=== PATIENT | male | born 1950 | race African-American/Black ===

== ENCOUNTER 2021-06-27 16:34 | Inpatient (IN) ==
[2021-06-27] MEDS ORDERED: Naloxone 0.4 MG/ML INJ IVP PRN (19:53)
[2021-06-27] MEDS ORDERED: Acetaminophen 325 MG TABLET PO PRN (19:53)
[2021-06-27] MEDS ORDERED: Ondansetron 4 MG/2 ML VIAL IVP PRN (19:53)
[2021-06-27] MEDS ORDERED: Melatonin 3 MG TABLET PO PRN (19:53)
[2021-06-27] MEDS: Piperacillin/Tazobactam 3.375 GM in 0.9 % Sodium Chloride Mini Bag 100 ML IVPB SCH (23:38)
[2021-06-28] MEDS ORDERED: Albuterol 2.5 MG/3 ML NEBULIZER IH PRN (00:55)
[2021-06-28] MEDS ORDERED: GuaiFENesin Liq 200 MG/10 ML UDC PO PRN (00:55)
[2021-06-28] MEDS ORDERED: Perflutren Lipid Microsphere 1.3 ML in 0.9 % Sodium Chloride 8.7 ML IVP PRN (03:03)
[2021-06-28] MEDS: Vancomycin 1,250 MG/262.5 ML IV.SOLN IVPB SCH ×2 (03:42→18:03)
[2021-06-28 06:28] LABS: Alanine Aminotransferase 10 Units/L (7-52); Albumin/Globulin Ratio 1.4 (1.1-2.2); Alkaline Phosphatase 38 Units/L (34-104); Aspartate Amino Transferase 16 Units/L (13-39); BUN/Creatinine Ratio 17 (6-26); Bilirubin,Total 1.1 mg/dL (0.3-1.0); Blood Urea Nitrogen 23 mg/dL (8-23); Calcium 10.3 mg/dL (8.6-10.3); Carbon Dioxide 27 mEq/L (23-29); Chloride 102 mEq/L (98-107); Globulin 2.9 g/dL (2.4-3.5); Glucose 119 mg/dL (70-105); Magnesium 1.8 mg/dL (1.6-2.6); Osmolality,Calculated 291 (280-300); Phosphorous 3.7 mg/dL (2.7-4.5); Potassium 4.6 mEq/L (3.5-5.1); Sodium 138 mEq/L (136-145); Total Protein 6.9 g/dL (6.4-8.9); eGFR For African Americans > 60 (> 60); eGFR For Non-African Americans 53 (> 60)
[2021-06-28 07:01] LABS: Basophils % 0.1 %; Eosinophils % 0.2 %; Hematocrit 31.5 % (37.5-50.1); Hemoglobin 10.3 g/dL (12.9-16.9); Immature Granulocytes % 0.4 % (0-4); Lymphocytes # 1.5 K/mcL (0.6-4.6); Lymphocytes % 12.1 %; Mean Corpuscular HGB Conc 32.7 g/dL (31.6-35.5); Mean Corpuscular Hemoglobin 30.5 pg (28.0-33.3); Mean Corpuscular Volume 93.2 fL (83.0-100.0); Mean Platelet Volume 10.7 fL (9.4-12.4); Monocytes # 1.4 K/mcL (0.0-1.3); Monocytes % 11.2 %; Neutrophils # 9.7 K/mcL (1.6-8.9); Platelet Count 190 K/mcL (140-400); Red Blood Count 3.38 M/mcL (4.19-5.50); Red Cell Distribution Width 15.6 % (11.5-14.5); White Blood Count 12.7 K/mcL (4.3-11.1)
[2021-06-28] MEDS ORDERED: Artificial Tears SOLN 15 ML BOTTLE BOTH EYES PRN ×2 (07:45→16:36)
[2021-06-28] MEDS ORDERED: Saline Nasal Spray 44 ML BOTTLE NS PRN ×2 (07:45→16:36)
[2021-06-28] MEDS: Multivit/Ca/Min/Fe/FA 1 TAB TABLET PO SCH (08:43)
[2021-06-28] MEDS: Piperacillin/Tazobactam 3.375 GM in 0.9 % Sodium Chloride Mini Bag 100 ML IVPB SCH ×2 (08:43→16:30)
[2021-06-28] MEDS: Chlorhexidine Rinse 15 ML MOUTHWASH MM SCH ×2 (08:43→21:23)
[2021-06-28] MEDS: Lactobacillus 1 EACH CAP.SPRINK PO SCH ×2 (08:43→21:24)
[2021-06-28 09:16] LABS: INR 1.4; Prothrombin Time 15.9 Seconds (9.4-12.1)
[2021-06-28] MEDS: Ipratropium/Albuterol Neb 3 ML IH SCH ×2 (10:03→11:27)
[2021-06-28] MEDS ORDERED: methylPREDNISolone 125 MG/2 ML VIAL IVP STA (10:11)
[2021-06-28 10:38] LABS: Adenovirus Not Detected (Not Detect); Bordetella Pertussis Not Detected (Not Detect); Chlamydophila pneumoniae Not Detected (Not Detect); Coronavirus 229E Not Detected (Not Detect); Coronavirus HKU1 Not Detected (Not Detect); Coronavirus NL63 Not Detected (Not Detect); Coronavirus OC43 Not Detected (Not Detect); Human Metapneumovirus Not Detected (Not Detect); Human Rhinovirus/Enterovirus Not Detected (Not Detect); Influenza A Subtype 2009 H1 Not Detected (Not Detect); Influenza B Not Detected (Not Detect); Mycoplasma pneumoniae Not Detected (Not Detect); Parainfluenza Virus 1 Not Detected (Not Detect); Parainfluenza Virus 2 Not Detected (Not Detect); Parainfluenza Virus 3 Not Detected (Not Detect); Parainfluenza Virus 4 Not Detected (Not Detect); Respiratory Syncytial Virus Not Detected (Not Detect); SARS-CoV-2 Not Detected (Not Detect)
[2021-06-28 11:02] LABS: ABG Base Excess 3 mEq/L (-2 to 3); ABG HCO3 28 mEq/L (21-27); ABG Oxygen Saturation 99 % (95-98); ABG PCO2 44 mmHg (35-45); ABG PO2 115 mmHg (85-104); ABG TCO2 29 mEq/L (20-26)
[2021-06-28] MEDS: Budesonide/Formoterol 160/4.5 1 PUFF INH IH SCH ×2 (11:27→19:32)
[2021-06-28] MEDS ORDERED: *HR* Metoprolol 5 MG/5 ML VIAL IVP ONE (13:51)
[2021-06-28] MEDS ORDERED: Furosemide 20 MG/2 ML VIAL IVP ONE (14:00)
[2021-06-28] MEDS: Levalbuterol Neb 1.25 MG/3 ML IH SCH ×4 (14:06→23:34)
[2021-06-28 14:07] LABS: ABG Base Excess 4 mEq/L (-2 to 3); ABG HCO3 29 mEq/L (21-27); ABG Oxygen Saturation 92 % (95-98); ABG PCO2 45 mmHg (35-45); ABG PH 7.42 pH Units (7.32-7.45); ABG PO2 65 mmHg (85-104); ABG TCO2 31 mEq/L (20-26)
[2021-06-28 14:19] LABS: Basophils % 0.1 %; Hemoglobin 11.5 g/dL (12.9-16.9); Immature Granulocytes % 0.4 % (0-4); Lymphocytes # 0.9 K/mcL (0.6-4.6); Lymphocytes % 6.1 %; Mean Corpuscular HGB Conc 32.9 g/dL (31.6-35.5); Mean Corpuscular Hemoglobin 31.2 pg (28.0-33.3); Mean Corpuscular Volume 94.9 fL (83.0-100.0); Monocytes # 0.7 K/mcL (0.0-1.3); Monocytes % 4.9 %; Neutrophils # 13.4 K/mcL (1.6-8.9); Nucleated Red Blood Cells 0.1 /100 WBC (0); Platelet Count 196 K/mcL (140-400); Red Blood Count 3.69 M/mcL (4.19-5.50); Red Cell Distribution Width 15.6 % (11.5-14.5); Segmented Neutrophils % 88.5 %; White Blood Count 15.2 K/mcL (4.3-11.1)
[2021-06-28 14:24] LABS: INR 1.4; Prothrombin Time 15.6 Seconds (9.4-12.1)
[2021-06-28 14:45] LABS: Alanine Aminotransferase 11 Units/L (7-52); Albumin 4.2 g/dL (3.5-5.7); Albumin/Globulin Ratio 1.3 (1.1-2.2); Alkaline Phosphatase 40 Units/L (34-104); Aspartate Amino Transferase 15 Units/L (13-39); BUN/Creatinine Ratio 18 (6-26); Bilirubin,Total 1.2 mg/dL (0.3-1.0); Blood Urea Nitrogen 23 mg/dL (8-23); Calcium 10.3 mg/dL (8.6-10.3); Carbon Dioxide 28 mEq/L (23-29); Chloride 102 mEq/L (98-107); Globulin 3.2 g/dL (2.4-3.5); Glucose 191 mg/dL (70-105); Magnesium 2.2 mg/dL (1.6-2.6); Osmolality,Calculated 297 (280-300); Phosphorous 2.3 mg/dL (2.7-4.5); Potassium 4.1 mEq/L (3.5-5.1); Sodium 139 mEq/L (136-145); Total Protein 7.4 g/dL (6.4-8.9); Troponin I < 0.03 ng/mL (< 0.04); eGFR For African Americans > 60 (> 60); eGFR For Non-African Americans 56 (> 60)
[2021-06-28] MEDS ORDERED: DilTIAZem 50 MG/50 ML IV.SOLN IVC SCH (15:00)
[2021-06-28] MEDS ORDERED: *HR* Heparin 5,000 UNIT/ML VIAL IVP PRN ×2 (15:25)
[2021-06-28] MEDS ORDERED: *HR* Heparin 5,000 UNIT/ML VIAL IVP ONE (15:25)
[2021-06-28] MEDS ORDERED: MethylPREDNISolone 40 MG/ML VIAL IVP SCH ×2 (16:00)
[2021-06-28] MEDS: methylPREDNISolone 125 MG/2 ML VIAL IVP SCH (16:29)
[2021-06-28] MEDS: Heparin 25,000UNIT/250ML 1/2NS 25,000 UNIT/250 ML IV.SOLN IVC SCH (16:30)
[2021-06-28] MEDS ORDERED: Potassium Phosphate 44 MEQ in 0.9 % Sodium Chloride 250 ML IVPB ONE (16:36)
[2021-06-28] MEDS: Insulin LISPRO 300 UNITS/3 ML VIAL SUBQ SCH (18:04)
[2021-06-28] MEDS: Ipratropium Neb 0.5 MG NEBULIZER IH SCH ×2 (19:32→23:34)
[2021-06-28] MEDS ORDERED: NON-FORMULARY MEDICATION 1 EACH EACH (Atorvastatin Calcium 80 MG Tablet) PO SCH (20:00)
[2021-06-29] MEDS: methylPREDNISolone 125 MG/2 ML VIAL IVP SCH ×3 (01:09→16:34)
[2021-06-29] MEDS: Piperacillin/Tazobactam 3.375 GM in 0.9 % Sodium Chloride Mini Bag 100 ML IVPB SCH ×3 (01:11→16:34)
[2021-06-29] MEDS: Vancomycin 1,250 MG/262.5 ML IV.SOLN IVPB SCH (02:38)
[2021-06-29] MEDS: Ipratropium Neb 0.5 MG NEBULIZER IH SCH ×5 (04:02→20:03)
[2021-06-29] MEDS: Levalbuterol Neb 1.25 MG/3 ML IH SCH ×5 (04:02→20:03)
[2021-06-29 06:08] LABS: Basophils % 0.1 %; Hematocrit 33.7 % (37.5-50.1); Hemoglobin 10.8 g/dL (12.9-16.9); Immature Granulocytes % 0.7 % (0-4); Lymphocytes # 0.8 K/mcL (0.6-4.6); Lymphocytes % 6.2 %; Mean Corpuscular Hemoglobin 30.3 pg (28.0-33.3); Mean Corpuscular Volume 94.4 fL (83.0-100.0); Monocytes # 0.5 K/mcL (0.0-1.3); Monocytes % 4.4 %; Neutrophils # 10.9 K/mcL (1.6-8.9); Platelet Count 194 K/mcL (140-400); Red Blood Count 3.57 M/mcL (4.19-5.50); Red Cell Distribution Width 15.5 % (11.5-14.5); Segmented Neutrophils % 88.6 %; White Blood Count 12.3 K/mcL (4.3-11.1)
[2021-06-29 06:27] LABS: Alanine Aminotransferase 9 Units/L (7-52); Albumin 3.9 g/dL (3.5-5.7); Albumin/Globulin Ratio 1.3 (1.1-2.2); Alkaline Phosphatase 36 Units/L (34-104); Aspartate Amino Transferase 14 Units/L (13-39); BUN/Creatinine Ratio 21 (6-26); Bilirubin,Total 0.8 mg/dL (0.3-1.0); Blood Urea Nitrogen 24 mg/dL (8-23); Calcium 9.8 mg/dL (8.6-10.3); Carbon Dioxide 25 mEq/L (23-29); Chloride 105 mEq/L (98-107); Globulin 3.1 g/dL (2.4-3.5); Glucose 183 mg/dL (70-105); Magnesium 2.1 mg/dL (1.6-2.6); Osmolality,Calculated 299 (280-300); Phosphorous 3.1 mg/dL (2.7-4.5); Potassium 4.1 mEq/L (3.5-5.1); Sodium 140 mEq/L (136-145); eGFR For African Americans > 60 (> 60); eGFR For Non-African Americans > 60 (> 60)
[2021-06-29] MEDS: Budesonide/Formoterol 160/4.5 1 PUFF INH IH SCH ×2 (07:17→20:03)
[2021-06-29] MEDS: Heparin 25,000UNIT/250ML 1/2NS 25,000 UNIT/250 ML IV.SOLN IVC SCH (08:35)
[2021-06-29] MEDS ORDERED: Aspirin Enteric Coated 81 MG Tablet PO SCH (09:00)
[2021-06-29] MEDS ORDERED: MULTIVITAMIN PO SCH (09:00)
[2021-06-29] MEDS: Isosorbide MONOnitrate (24 HR) 30 MG TAB.ER.24H PO SCH (09:15)
[2021-06-29] MEDS: Multivit/Ca/Min/Fe/FA 1 TAB TABLET PO SCH (09:15)
[2021-06-29] MEDS: Cholecalciferol (D-3) 1,000 UNIT (25MCG) TABLET PO SCH (09:15)
[2021-06-29] MEDS: Aspirin 81 MG TAB.CHEW PO SCH (09:15)
[2021-06-29] MEDS: Chlorhexidine Rinse 15 ML MOUTHWASH MM SCH ×3 (09:16→22:14)
[2021-06-29] MEDS: Lactobacillus 1 EACH CAP.SPRINK PO SCH ×3 (09:16→22:13)
[2021-06-29] MEDS: Insulin LISPRO 300 UNITS/3 ML VIAL SUBQ SCH ×3 (09:17→16:35)
[2021-06-29] MEDS: Furosemide 20 MG/2 ML VIAL IVP SCH (09:17)
[2021-06-29] MEDS ORDERED: DilTIAZem CD (24hr) 180 MG CAP.ER.24H PO SCH (10:30)
[2021-06-29] MEDS ORDERED: Gadolinium Contrast Agent (WT Based) IV PRN (15:02)
[2021-06-29] MEDS ORDERED: Heparin 25,000UNIT/250ML 1/2NS 25,000 UNIT/250 ML IV.SOLN IVC SCH (16:15)
[2021-06-29] MEDS ORDERED: *HR* LORazepam 0.5 MG TABLET PO ONE (16:54)
[2021-06-29] MEDS ORDERED: GADOBUTROL 30 MMOL/30 ML VIAL IVP ONE (17:44)
[2021-06-30] MEDS: Levalbuterol Neb 1.25 MG/3 ML IH SCH ×7 (00:26→23:26)
[2021-06-30] MEDS: Ipratropium Neb 0.5 MG NEBULIZER IH SCH ×7 (00:26→23:26)
[2021-06-30] MEDS: Piperacillin/Tazobactam 3.375 GM in 0.9 % Sodium Chloride Mini Bag 100 ML IVPB SCH ×3 (01:24→16:45)
[2021-06-30] MEDS: methylPREDNISolone 125 MG/2 ML VIAL IVP SCH ×3 (01:24→16:44)
[2021-06-30] MEDS ORDERED: *HR* Metoprolol 5 MG/5 ML VIAL IVP ONE (06:24)
[2021-06-30] MEDS: Budesonide/Formoterol 160/4.5 1 PUFF INH IH SCH ×2 (07:34→23:26)
[2021-06-30] MEDS: Furosemide 20 MG/2 ML VIAL IVP SCH (08:30)
[2021-06-30] MEDS: Insulin LISPRO 300 UNITS/3 ML VIAL SUBQ SCH ×3 (08:31→16:46)
[2021-06-30] MEDS: Aspirin 81 MG TAB.CHEW PO SCH (08:32)
[2021-06-30] MEDS: Cholecalciferol (D-3) 1,000 UNIT (25MCG) TABLET PO SCH (08:32)
[2021-06-30] MEDS: Chlorhexidine Rinse 15 ML MOUTHWASH MM SCH ×2 (08:32→22:13)
[2021-06-30] MEDS: Lactobacillus 1 EACH CAP.SPRINK PO SCH ×2 (08:32→22:13)
[2021-06-30] MEDS: Isosorbide MONOnitrate (24 HR) 30 MG TAB.ER.24H PO SCH (08:33)
[2021-06-30] MEDS: Multivit/Ca/Min/Fe/FA 1 TAB TABLET PO SCH (08:34)
[2021-06-30 08:48] LABS: ABG Base Excess 1 mEq/L (-2 to 3); ABG HCO3 25 mEq/L (21-27); ABG Oxygen Saturation 87 % (95-98); ABG PCO2 36 mmHg (35-45); ABG PH 7.44 pH Units (7.32-7.45); ABG PO2 50 mmHg (85-104); ABG TCO2 26 mEq/L (20-26)
[2021-06-30] MEDS: DilTIAZem CD (24hr) 240 MG CAP.ER.24H PO SCH (08:56)
[2021-06-30 10:01] LABS: Basophils % 0.1 %; Hematocrit 36.6 % (37.5-50.1); Hemoglobin 11.8 g/dL (12.9-16.9); Immature Granulocytes % 0.7 % (0-4); Lymphocytes % 3.2 %; Mean Corpuscular HGB Conc 32.2 g/dL (31.6-35.5); Mean Corpuscular Hemoglobin 30.4 pg (28.0-33.3); Mean Corpuscular Volume 94.3 fL (83.0-100.0); Monocytes # 0.7 K/mcL (0.0-1.3); Monocytes % 3.3 %; Neutrophils # 18.5 K/mcL (1.6-8.9); Nucleated Red Blood Cells 0.1 /100 WBC (0); Platelet Count 239 K/mcL (140-400); Red Blood Count 3.88 M/mcL (4.19-5.50); Red Cell Distribution Width 15.9 % (11.5-14.5); Segmented Neutrophils % 92.7 %
[2021-06-30 10:04] LABS: Lymphocytes # 0.6 K/mcL (0.6-4.6)
[2021-06-30 10:21] LABS: Alanine Aminotransferase 17 Units/L (7-52); Albumin 4.1 g/dL (3.5-5.7); Albumin/Globulin Ratio 1.2 (1.1-2.2); Alkaline Phosphatase 43 Units/L (34-104); Aspartate Amino Transferase 18 Units/L (13-39); BUN/Creatinine Ratio 26 (6-26); Bilirubin,Total 0.7 mg/dL (0.3-1.0); Blood Urea Nitrogen 36 mg/dL (8-23); Carbon Dioxide 23 mEq/L (23-29); Chloride 105 mEq/L (98-107); Globulin 3.3 g/dL (2.4-3.5); Glucose 198 mg/dL (70-105); Osmolality,Calculated 308 (280-300); Potassium 3.5 mEq/L (3.5-5.1); Sodium 142 mEq/L (136-145); Total Protein 7.4 g/dL (6.4-8.9); eGFR For African Americans > 60 (> 60); eGFR For Non-African Americans 51 (> 60)
[2021-06-30 10:22] LABS: % Iron Saturation 30 % (20-55); Iron 83 mcg/dL (65-175); Transferrin 195 mg/dL (203-362)
[2021-06-30 10:38] LABS: Ferritin 446 ng/mL (20-250)
[2021-06-30 10:48] LABS: Folate > 22.3 ng/mL (3.0-16.0); Vitamin B12 777 pg/mL (250-1100)
[2021-06-30] MEDS: Apixaban 5 MG TABLET PO SCH (22:13)
[2021-07-01] MEDS: Piperacillin/Tazobactam 3.375 GM in 0.9 % Sodium Chloride Mini Bag 100 ML IVPB SCH ×3 (00:21→15:24)
[2021-07-01] MEDS: methylPREDNISolone 125 MG/2 ML VIAL IVP SCH ×3 (00:22→15:23)
[2021-07-01 03:31] LABS: Basophils % 0.1 %; Hematocrit 29.3 % (37.5-50.1); Immature Granulocytes % 0.8 % (0-4); Lymphocytes # 0.6 K/mcL (0.6-4.6); Lymphocytes % 4.3 %; Mean Corpuscular HGB Conc 33.4 g/dL (31.6-35.5); Mean Corpuscular Hemoglobin 31.2 pg (28.0-33.3); Mean Corpuscular Volume 93.3 fL (83.0-100.0); Monocytes # 0.5 K/mcL (0.0-1.3); Monocytes % 3.4 %; Neutrophils # 12.7 K/mcL (1.6-8.9); Nucleated Red Blood Cells 0.2 /100 WBC (0); Platelet Count 196 K/mcL (140-400); Red Blood Count 3.14 M/mcL (4.19-5.50); Segmented Neutrophils % 91.4 %; White Blood Count 13.9 K/mcL (4.3-11.1)
[2021-07-01 03:34] LABS: Hemoglobin 9.8 g/dL (12.9-16.9)
[2021-07-01 03:55] LABS: Albumin 3.5 g/dL (3.5-5.7); Albumin/Globulin Ratio 1.2 (1.1-2.2); Bilirubin,Total 0.7 mg/dL (0.3-1.0); Calcium 9.3 mg/dL (8.6-10.3); Globulin 2.9 g/dL (2.4-3.5); Phosphorous 3.4 mg/dL (2.7-4.5); Potassium 3.7 mEq/L (3.5-5.1); Total Protein 6.4 g/dL (6.4-8.9)
[2021-07-01] MEDS: Levalbuterol Neb 1.25 MG/3 ML IH SCH ×5 (04:05→20:25)
[2021-07-01] MEDS: Ipratropium Neb 0.5 MG NEBULIZER IH SCH ×5 (04:05→20:25)
[2021-07-01] MEDS: Budesonide/Formoterol 160/4.5 1 PUFF INH IH SCH ×2 (07:44→20:25)
[2021-07-01] MEDS: Multivit/Ca/Min/Fe/FA 1 TAB TABLET PO SCH (11:11)
[2021-07-01] MEDS: Cholecalciferol (D-3) 1,000 UNIT (25MCG) TABLET PO SCH (11:11)
[2021-07-01] MEDS: Chlorhexidine Rinse 15 ML MOUTHWASH MM SCH ×2 (11:11→20:16)
[2021-07-01] MEDS: Apixaban 5 MG TABLET PO SCH ×2 (11:11→20:15)
[2021-07-01] MEDS: Lactobacillus 1 EACH CAP.SPRINK PO SCH ×2 (11:12→20:16)
[2021-07-01] MEDS: Aspirin 81 MG TAB.CHEW PO SCH (11:12)
[2021-07-01] MEDS: Furosemide 20 MG/2 ML VIAL IVP SCH (11:12)
[2021-07-01] MEDS: Insulin LISPRO 300 UNITS/3 ML VIAL SUBQ SCH ×3 (11:13→17:00)
[2021-07-01] MEDS: Isosorbide MONOnitrate (24 HR) 30 MG TAB.ER.24H PO SCH (11:14)
[2021-07-01] MEDS: DilTIAZem CD (24hr) 240 MG CAP.ER.24H PO SCH (11:14)
[2021-07-01 14:25] LABS: Hematocrit 32.8 % (37.5-50.1); Hemoglobin 10.7 g/dL (12.9-16.9)
[2021-07-02] MEDS: Ipratropium Neb 0.5 MG NEBULIZER IH SCH ×7 (00:26→23:00)
[2021-07-02] MEDS: Levalbuterol Neb 1.25 MG/3 ML IH SCH ×7 (00:26→23:00)
[2021-07-02] MEDS: Piperacillin/Tazobactam 3.375 GM in 0.9 % Sodium Chloride Mini Bag 100 ML IVPB SCH ×3 (00:31→16:30)
[2021-07-02] MEDS: methylPREDNISolone 125 MG/2 ML VIAL IVP SCH ×3 (00:32→16:29)
[2021-07-02 01:04] LABS: Basophils % 0.1 %; Hematocrit 29.6 % (37.5-50.1); Hemoglobin 9.7 g/dL (12.9-16.9); Lymphocytes # 0.6 K/mcL (0.6-4.6); Lymphocytes % 4.6 %; Mean Corpuscular HGB Conc 32.8 g/dL (31.6-35.5); Mean Corpuscular Hemoglobin 30.2 pg (28.0-33.3); Mean Corpuscular Volume 92.2 fL (83.0-100.0); Mean Platelet Volume 10.4 fL (9.4-12.4); Monocytes # 0.5 K/mcL (0.0-1.3); Monocytes % 3.9 %; Neutrophils # 11.3 K/mcL (1.6-8.9); Nucleated Red Blood Cells 0.2 /100 WBC (0); Platelet Count 194 K/mcL (140-400); Red Blood Count 3.21 M/mcL (4.19-5.50); Red Cell Distribution Width 15.8 % (11.5-14.5); Segmented Neutrophils % 90.4 %; White Blood Count 12.5 K/mcL (4.3-11.1)
[2021-07-02 01:24] LABS: BUN/Creatinine Ratio 38 (6-26); Blood Urea Nitrogen 44 mg/dL (8-23); Calcium 9.2 mg/dL (8.6-10.3); Carbon Dioxide 24 mEq/L (23-29); Chloride 107 mEq/L (98-107); Glucose 173 mg/dL (70-105); Osmolality,Calculated 307 (280-300); Phosphorous 3.6 mg/dL (2.7-4.5); Potassium 3.7 mEq/L (3.5-5.1); Sodium 141 mEq/L (136-145); eGFR For African Americans > 60 (> 60); eGFR For Non-African Americans > 60 (> 60)
[2021-07-02] MEDS: Budesonide/Formoterol 160/4.5 1 PUFF INH IH SCH ×2 (07:23→20:37)
[2021-07-02] MEDS: Cholecalciferol (D-3) 1,000 UNIT (25MCG) TABLET PO SCH (09:20)
[2021-07-02] MEDS: Apixaban 5 MG TABLET PO SCH ×2 (09:20→21:56)
[2021-07-02] MEDS: Isosorbide MONOnitrate (24 HR) 30 MG TAB.ER.24H PO SCH (09:20)
[2021-07-02] MEDS: Lactobacillus 1 EACH CAP.SPRINK PO SCH ×2 (09:20→21:56)
[2021-07-02] MEDS: Multivit/Ca/Min/Fe/FA 1 TAB TABLET PO SCH (09:20)
[2021-07-02] MEDS: Aspirin 81 MG TAB.CHEW PO SCH (09:20)
[2021-07-02] MEDS: DilTIAZem CD (24hr) 240 MG CAP.ER.24H PO SCH (09:20)
[2021-07-02] MEDS: Furosemide 20 MG/2 ML VIAL IVP SCH (09:21)
[2021-07-02] MEDS: Chlorhexidine Rinse 15 ML MOUTHWASH MM SCH ×2 (09:21→21:56)
[2021-07-02] MEDS: Insulin LISPRO 300 UNITS/3 ML VIAL SUBQ SCH ×3 (09:22→16:30)
[2021-07-03 02:05] LABS: Basophils % 0.2 %; Hematocrit 30.4 % (37.5-50.1); Hemoglobin 10.1 g/dL (12.9-16.9); Immature Granulocytes % 1.2 % (0-4); Lymphocytes # 0.5 K/mcL (0.6-4.6); Lymphocytes % 4.6 %; Mean Corpuscular HGB Conc 33.2 g/dL (31.6-35.5); Mean Corpuscular Volume 93.3 fL (83.0-100.0); Monocytes # 0.5 K/mcL (0.0-1.3); Monocytes % 4.3 %; Neutrophils # 10.3 K/mcL (1.6-8.9); Nucleated Red Blood Cells 0.3 /100 WBC (0); Platelet Count 210 K/mcL (140-400); Red Blood Count 3.26 M/mcL (4.19-5.50); Red Cell Distribution Width 15.8 % (11.5-14.5); Segmented Neutrophils % 89.7 %; White Blood Count 11.5 K/mcL (4.3-11.1)
[2021-07-03 02:21] LABS: BUN/Creatinine Ratio 36 (6-26); Blood Urea Nitrogen 40 mg/dL (8-23); Carbon Dioxide 24 mEq/L (23-29); Chloride 105 mEq/L (98-107); Glucose 188 mg/dL (70-105); Magnesium 2.1 mg/dL (1.6-2.6); Osmolality,Calculated 303 (280-300); Phosphorous 2.9 mg/dL (2.7-4.5); Potassium 3.7 mEq/L (3.5-5.1); Sodium 139 mEq/L (136-145); eGFR For African Americans > 60 (> 60); eGFR For Non-African Americans > 60 (> 60)
[2021-07-03] MEDS: methylPREDNISolone 125 MG/2 ML VIAL IVP SCH ×3 (03:22→17:57)
[2021-07-03] MEDS: Ipratropium Neb 0.5 MG NEBULIZER IH SCH ×6 (03:52→23:52)
[2021-07-03] MEDS: Levalbuterol Neb 1.25 MG/3 ML IH SCH ×6 (03:52→23:52)
[2021-07-03] MEDS: Budesonide/Formoterol 160/4.5 1 PUFF INH IH SCH ×2 (07:29→20:06)
[2021-07-03] MEDS ORDERED: DilTIAZem CD (24hr) 300 MG CAP.ER.24H PO SCH (09:00)
[2021-07-03] MEDS: Furosemide 20 MG/2 ML VIAL IVP SCH (09:16)
[2021-07-03] MEDS: Multivit/Ca/Min/Fe/FA 1 TAB TABLET PO SCH (09:16)
[2021-07-03] MEDS: Lactobacillus 1 EACH CAP.SPRINK PO SCH ×2 (09:16→20:57)
[2021-07-03] MEDS: Chlorhexidine Rinse 15 ML MOUTHWASH MM SCH ×2 (09:16→20:56)
[2021-07-03] MEDS: Apixaban 5 MG TABLET PO SCH ×2 (09:17→20:57)
[2021-07-03] MEDS: Aspirin 81 MG TAB.CHEW PO SCH (09:17)
[2021-07-03] MEDS: Isosorbide MONOnitrate (24 HR) 30 MG TAB.ER.24H PO SCH (09:17)
[2021-07-03] MEDS: Cholecalciferol (D-3) 1,000 UNIT (25MCG) TABLET PO SCH (09:17)
[2021-07-03] MEDS: DilTIAZem CD (24hr) 180 MG CAP.ER.24H PO SCH (09:17)
[2021-07-03] MEDS: Insulin LISPRO 300 UNITS/3 ML VIAL SUBQ SCH ×3 (09:18→18:06)
[2021-07-03] MEDS ORDERED: *HR* Digoxin 0.5 MG/2 ML AMPUL IVP ONE (11:10)
[2021-07-03] MEDS ORDERED: Albuterol 2.5 MG/3 ML NEBULIZER IH PRN (12:36)
[2021-07-03] MEDS: *HR* Digoxin 0.5 MG/2 ML AMPUL IVP SCH (18:05)
[2021-07-04] MEDS: *HR* Digoxin 0.5 MG/2 ML AMPUL IVP SCH (00:14)
[2021-07-04] MEDS: methylPREDNISolone 125 MG/2 ML VIAL IVP SCH ×2 (00:48→08:57)
[2021-07-04 01:51] LABS: Basophils % 0.3 %; Hematocrit 32.7 % (37.5-50.1); Hemoglobin 10.7 g/dL (12.9-16.9); Immature Granulocytes % 1.8 % (0-4); Lymphocytes # 0.6 K/mcL (0.6-4.6); Mean Corpuscular HGB Conc 32.7 g/dL (31.6-35.5); Mean Corpuscular Hemoglobin 30.8 pg (28.0-33.3); Mean Corpuscular Volume 94.2 fL (83.0-100.0); Mean Platelet Volume 10.5 fL (9.4-12.4); Monocytes # 0.4 K/mcL (0.0-1.3); Monocytes % 3.6 %; Neutrophils # 10.4 K/mcL (1.6-8.9); Nucleated Red Blood Cells 0.3 /100 WBC (0); Platelet Count 238 K/mcL (140-400); Red Blood Count 3.47 M/mcL (4.19-5.50); Red Cell Distribution Width 15.5 % (11.5-14.5); Segmented Neutrophils % 89.3 %; White Blood Count 11.7 K/mcL (4.3-11.1)
[2021-07-04 02:16] LABS: BUN/Creatinine Ratio 35 (6-26); Blood Urea Nitrogen 44 mg/dL (8-23); Calcium 8.8 mg/dL (8.6-10.3); Carbon Dioxide 27 mEq/L (23-29); Chloride 102 mEq/L (98-107); Glucose 163 mg/dL (70-105); Magnesium 2.1 mg/dL (1.6-2.6); Osmolality,Calculated 307 (280-300); Phosphorous 3.8 mg/dL (2.7-4.5); Potassium 3.9 mEq/L (3.5-5.1); Sodium 141 mEq/L (136-145); eGFR For African Americans > 60 (> 60); eGFR For Non-African Americans 56 (> 60)
[2021-07-04] MEDS: Ipratropium Neb 0.5 MG NEBULIZER IH SCH ×6 (03:52→19:38)
[2021-07-04] MEDS: Levalbuterol Neb 1.25 MG/3 ML IH SCH ×4 (03:52→15:32)
[2021-07-04] MEDS: Budesonide/Formoterol 160/4.5 1 PUFF INH IH SCH ×2 (07:29→19:28)
[2021-07-04] MEDS: Aspirin 81 MG TAB.CHEW PO SCH (08:56)
[2021-07-04] MEDS: Lactobacillus 1 EACH CAP.SPRINK PO SCH ×2 (08:57→20:43)
[2021-07-04] MEDS: Cholecalciferol (D-3) 1,000 UNIT (25MCG) TABLET PO SCH (08:57)
[2021-07-04] MEDS: Apixaban 5 MG TABLET PO SCH ×2 (08:58→20:43)
[2021-07-04] MEDS: Chlorhexidine Rinse 15 ML MOUTHWASH MM SCH ×2 (08:58→20:43)
[2021-07-04] MEDS: Isosorbide MONOnitrate (24 HR) 30 MG TAB.ER.24H PO SCH (08:58)
[2021-07-04] MEDS: Insulin LISPRO 300 UNITS/3 ML VIAL SUBQ SCH ×3 (08:58→16:27)
[2021-07-04] MEDS: Multivit/Ca/Min/Fe/FA 1 TAB TABLET PO SCH (08:58)
[2021-07-04] MEDS: DilTIAZem CD (24hr) 180 MG CAP.ER.24H PO SCH (08:58)
[2021-07-04] MEDS: Levalbuterol Neb 0.63 MG/3 ML IH SCH ×2 (16:36→19:27)
[2021-07-05 02:44] LABS: Basophils # 0.1 K/mcL (0.0-0.2); Basophils % 0.5 %; Hematocrit 31.8 % (37.5-50.1); Hemoglobin 10.5 g/dL (12.9-16.9); Lymphocytes # 0.6 K/mcL (0.6-4.6); Lymphocytes % 4.5 %; Mean Corpuscular Volume 93.8 fL (83.0-100.0); Mean Platelet Volume 10.6 fL (9.4-12.4); Monocytes # 0.7 K/mcL (0.0-1.3); Monocytes % 5.8 %; Neutrophils # 10.9 K/mcL (1.6-8.9); Nucleated Red Blood Cells 0.3 /100 WBC (0); Platelet Count 250 K/mcL (140-400); Red Blood Count 3.39 M/mcL (4.19-5.50); Red Cell Distribution Width 15.2 % (11.5-14.5); Segmented Neutrophils % 85.2 %; White Blood Count 12.8 K/mcL (4.3-11.1)
[2021-07-05 02:46] LABS: Estimated Average Glucose 148 mg/dl; Hemoglobin A1C 6.8 %
[2021-07-05 03:02] LABS: BUN/Creatinine Ratio 42 (6-26); Blood Urea Nitrogen 48 mg/dL (8-23); Calcium 8.3 mg/dL (8.6-10.3); Carbon Dioxide 25 mEq/L (23-29); Chloride 105 mEq/L (98-107); Glucose 150 mg/dL (70-105); Magnesium 2.4 mg/dL (1.6-2.6); Osmolality,Calculated 301 (280-300); Potassium 3.9 mEq/L (3.5-5.1); Sodium 138 mEq/L (136-145); eGFR For African Americans > 60 (> 60); eGFR For Non-African Americans > 60 (> 60)
[2021-07-05 03:14] LABS: Thyroid Stimulating Hormone 0.399 mcIU/mL (0.340-5.600)
[2021-07-05] MEDS: Levalbuterol Neb 0.63 MG/3 ML IH SCH ×4 (03:53→22:05)
[2021-07-05] MEDS: Ipratropium Neb 0.5 MG NEBULIZER IH SCH ×4 (03:54→22:05)
[2021-07-05] MEDS: Insulin LISPRO 300 UNITS/3 ML VIAL SUBQ SCH ×3 (07:51→17:36)
[2021-07-05] MEDS: Chlorhexidine Rinse 15 ML MOUTHWASH MM SCH ×2 (07:59→21:14)
[2021-07-05] MEDS: Aspirin 81 MG TAB.CHEW PO SCH (07:59)
[2021-07-05] MEDS: Cholecalciferol (D-3) 1,000 UNIT (25MCG) TABLET PO SCH (07:59)
[2021-07-05] MEDS: DilTIAZem CD (24hr) 180 MG CAP.ER.24H PO SCH (08:00)
[2021-07-05] MEDS: Lactobacillus 1 EACH CAP.SPRINK PO SCH ×2 (08:00→21:14)
[2021-07-05] MEDS: Isosorbide MONOnitrate (24 HR) 30 MG TAB.ER.24H PO SCH (08:00)
[2021-07-05] MEDS: Apixaban 5 MG TABLET PO SCH ×2 (08:00→21:14)
[2021-07-05] MEDS: Multivit/Ca/Min/Fe/FA 1 TAB TABLET PO SCH (08:00)
[2021-07-05] MEDS ORDERED: predniSONE 20 MG TABLET PO SCH (09:00)
[2021-07-05] MEDS: Budesonide/Formoterol 160/4.5 1 PUFF INH IH SCH ×2 (10:19→22:06)
[2021-07-06 03:22] LABS: Hematocrit 31.1 % (37.5-50.1); Hemoglobin 10.4 g/dL (12.9-16.9); Mean Corpuscular HGB Conc 33.4 g/dL (31.6-35.5); Mean Corpuscular Hemoglobin 31.3 pg (28.0-33.3); Mean Corpuscular Volume 93.7 fL (83.0-100.0); Mean Platelet Volume 10.8 fL (9.4-12.4); Nucleated Red Blood Cells 0.3 /100 WBC (0); Platelet Count 269 K/mcL (140-400); Red Blood Count 3.32 M/mcL (4.19-5.50); Red Cell Distribution Width 15.5 % (11.5-14.5); White Blood Count 14.3 K/mcL (4.3-11.1)
[2021-07-06 03:37] LABS: BUN/Creatinine Ratio 38 (6-26); Blood Urea Nitrogen 48 mg/dL (8-23); Calcium 8.5 mg/dL (8.6-10.3); Carbon Dioxide 27 mEq/L (23-29); Chloride 105 mEq/L (98-107); Glucose 132 mg/dL (70-105); Magnesium 2.5 mg/dL (1.6-2.6); Osmolality,Calculated 302 (280-300); Potassium 3.8 mEq/L (3.5-5.1); Sodium 139 mEq/L (136-145); eGFR For African Americans > 60 (> 60); eGFR For Non-African Americans 57 (> 60)
[2021-07-06 03:48] LABS: Lymphocytes # 1.4 K/mcL (0.6-4.6); Monocytes # 0.6 K/mcL (0.0-1.3); Neutrophils # 12.3 K/mcL (1.6-8.9); Platelet Estimate Normal (Normal); Smudge Cells Present (Not Present)
[2021-07-06 03:52] LABS: Triiodothyronine (T3) Free 2.32 pg/mL (2.50-3.90)
[2021-07-06] MEDS: Levalbuterol Neb 0.63 MG/3 ML IH SCH ×4 (04:15→22:16)
[2021-07-06] MEDS: Ipratropium Neb 0.5 MG NEBULIZER IH SCH ×4 (04:15→22:16)
[2021-07-06] MEDS: Insulin LISPRO 300 UNITS/3 ML VIAL SUBQ SCH ×3 (07:15→18:00)
[2021-07-06] MEDS ORDERED: predniSONE 20 MG TABLET PO SCH (09:00)
[2021-07-06] MEDS: Cholecalciferol (D-3) 1,000 UNIT (25MCG) TABLET PO SCH (09:02)
[2021-07-06] MEDS: Lactobacillus 1 EACH CAP.SPRINK PO SCH ×2 (09:02→19:37)
[2021-07-06] MEDS: Multivit/Ca/Min/Fe/FA 1 TAB TABLET PO SCH (09:03)
[2021-07-06] MEDS: DilTIAZem CD (24hr) 180 MG CAP.ER.24H PO SCH (09:03)
[2021-07-06] MEDS: Aspirin 81 MG TAB.CHEW PO SCH (09:04)
[2021-07-06] MEDS: Apixaban 5 MG TABLET PO SCH ×2 (09:04→19:37)
[2021-07-06] MEDS: Chlorhexidine Rinse 15 ML MOUTHWASH MM SCH ×2 (09:04→19:38)
[2021-07-06] MEDS: Isosorbide MONOnitrate (24 HR) 30 MG TAB.ER.24H PO SCH (09:04)
[2021-07-06] MEDS: Budesonide/Formoterol 160/4.5 1 PUFF INH IH SCH ×2 (10:31→22:16)
[2021-07-06 14:54] LABS: Adenovirus Not Detected (Not Detect); Bordetella Pertussis Not Detected (Not Detect); Chlamydophila pneumoniae Not Detected (Not Detect); Coronavirus 229E Not Detected (Not Detect); Coronavirus HKU1 Not Detected (Not Detect); Coronavirus NL63 Not Detected (Not Detect); Coronavirus OC43 Not Detected (Not Detect); Human Metapneumovirus Not Detected (Not Detect); Human Rhinovirus/Enterovirus Not Detected (Not Detect); Influenza A Subtype 2009 H1 Not Detected (Not Detect); Influenza B Not Detected (Not Detect); Mycoplasma pneumoniae Not Detected (Not Detect); Parainfluenza Virus 1 Not Detected (Not Detect); Parainfluenza Virus 2 Not Detected (Not Detect); Parainfluenza Virus 3 Not Detected (Not Detect); Parainfluenza Virus 4 Not Detected (Not Detect); Respiratory Syncytial Virus Not Detected (Not Detect); SARS-CoV-2 Not Detected (Not Detect)
[2021-07-06 16:29] VITALS: TEMP 97.7
[2021-07-06 18:54] VITALS: BP 113/73; PULSE 71; O2SAT 97
[2021-07-07] MEDS: Levalbuterol Neb 0.63 MG/3 ML IH SCH (04:16)
[2021-07-07] MEDS: Ipratropium Neb 0.5 MG NEBULIZER IH SCH (04:16)
== END 2021-07-06 22:07 | disposition other institution (70) | DRG 871 ==
LOC: 2ANU → SUATTDRO 19:30
PROVIDERS: ADMIT Pharmacist; ATTEND Pharmacist